=== PATIENT | female | born 1945 | race Two or more races ===

== ENCOUNTER 2022-11-08 08:20 | Inpatient (IN) | payer OTHER, MEDICAID ==
[~2022-11-08] VITALS: Ht 157.5 cm; Wt 75.9 kg
[~2022-11-08 08:20] MED LIST: AMLO1TAB23 PO; ASPI81CH59 PO; CARV6.2551 PO; DOCU-94 PO; GABA-1308 PO; HYDR-4072 PO; LOSA100T58 PO; MELO-335 PO; PRAV20TA3 PO; SENN-58 PO; TRAZ-228 PO
[2022-11-08] MEDS ORDERED: ETOMIDATE (2MG/ML) 20ML VIAL IV ONE (12:25)
[2022-11-08] MEDS ORDERED: MIDAZOLAM HCL 2MG/2ML 2ml VIAL (1mg/ml) ONE (12:25)
[2022-11-08] MEDS ORDERED: ONDANSETRON HCL 4 MG/2 ML VIAL ONE (12:25)
[2022-11-08] MEDS ORDERED: HYDROmorphone HCL 2 MG/ML VL/or syr ONE (12:25)
[2022-11-08] MEDS ORDERED: DexAMETHasone SOD PHOS 10MG/1ML VIAL INJ ONE (12:25)
[2022-11-08] MEDS ORDERED: ROCURONIUM 10MG/ML 10ML VIAL IV ONE (12:25)
[2022-11-08] MEDS ORDERED: PROPOFOL 10 MG/ML 20 ML IV ONE (12:25)
[2022-11-08] MEDS ORDERED: fentaNYL CITRATE 5 ML ONE (12:45)
[2022-11-08] MEDS ORDERED: MORPHINE SULFATE INJ 2 MG/ml SYRG IV PRN ×2 (13:30→17:00)
[2022-11-08] MEDS ORDERED: HYDROmorphone HCL 2 MG/ML VL/or syr IV PRN ×3 (13:30→18:15)
[2022-11-08] MEDS ORDERED: METOCLOPRAMIDE HCL 5MG/ml INJ 2ml VIAL IV PRN (13:30)
[2022-11-08] MEDS ORDERED: VANCOMYCIN HCL 1000 MG VL ONE (13:55)
[2022-11-08] MEDS ORDERED: NITROGLYCERIN 0.4 MG SL TAB SL PRN (17:00)
[2022-11-08] MEDS ORDERED: ONDANSETRON HCL 4 MG/2 ML VIAL IV PRN ×2 (17:00→18:15)
[2022-11-08] MEDS ORDERED: ACETAMINOPHEN 325 MG TAB PO PRN (17:00)
[2022-11-08] MEDS ORDERED: VANCOMYCIN PER PHARMACY 0 MG IV SCH (17:00)
[2022-11-08 17:56] VITALS: PULSE 79; RESP 14; O2SAT 96
[2022-11-08] MEDS ORDERED: VANCOMYCIN 1GM/250ML 250 ML IV ONE (18:00)
[2022-11-08 18:30] VITALS: PULSE 84; RESP 14; O2SAT 96
[2022-11-08] MEDS ORDERED: SUCCINYLCHOLINE 20mg/ml 100mg/5ml SYRINGE IV ONE (18:59)
[2022-11-08 19:34] VITALS: PULSE 88; RESP 19
[2022-11-08 20:00] VITALS: PULSE 73; PULSE 75; RESP 19
[2022-11-08] MEDS: HYDROcodone-ACET 10/325MG TAB PO PRN (20:37)
[2022-11-08 20:41] VITALS: BP 113/61; PULSE 80; RESP 16; TEMP 98.2; O2SAT 94
[2022-11-08] MEDS: DOCUSATE SOD 100 MG CAP PO SCH (21:21)
[2022-11-08] MEDS: CYCLOBENZAPRINE HCL 10 MG TAB PO SCH (21:21)
[2022-11-08] MEDS: D5W/SOD CHLO 0.9% 1,000 ML IV SCH (21:21)
[2022-11-08 22:00] VITALS: BP 113/61; PULSE 80; RESP 16; TEMP 98.6; O2SAT 94
[2022-11-09] VITALS (7 sets, daily range): BP systolic 124–137; BP diastolic 52–68; PULSE 81–87; RESP 14–20; TEMP 98.4–101.6; O2SAT 93–97
[2022-11-09] MEDS: MORPHINE SULFATE INJ 2 MG/ml SYRG IV PRN ×2 (02:20→11:32)
[2022-11-09] MEDS: D5W/SOD CHLO 0.9% 1,000 ML IV SCH ×3 (03:00→17:15)
[2022-11-09] MEDS: CYCLOBENZAPRINE HCL 10 MG TAB PO SCH ×3 (05:41→21:15)
[2022-11-09 11:07] LABS: Basophils # (auto) 0 10 ^3/uL (0-0.2); Basophils % (auto) 0.3 % (0.0-2.0); Eosinophils # (auto) 0 10 ^3/uL (0-0.8); Eosinophils % (auto) 0.2 % (0.0-7.0); Hematocrit 36.6 % (36.0-46.0); Hemoglobin 11.5 g/dL (12.2-16.2); Lymphocytes # (auto) 1.1 10 ^3/uL (0.4-5.4); Lymphocytes % (auto) 9.8 % (10.0-50.0); Mean Corpuscular Hemoglobin 27.6 pg (28.0-32.0); Mean Corpuscular Hgb Conc. 31.4 g/dL (32.0-36.0); Mean Corpuscular Volume 87.8 fL (80.0-100.0); Monocytes # (auto) 1.1 10 ^3/uL (0-1.3); Neutrophils # (auto) 8.8 10 ^3/uL (1.6-8.6); Neutrophils % (auto) 79.7 % (37.0-80.0); Red Blood Cells 4.17 10^6/uL (4.0-5.20); Red Cell Distribution Width 16.8 % (11.8-14.3)
[2022-11-09] MEDS: VANCOMYCIN 1GM/250ML 250 ML IV SCH (11:31)
[2022-11-09] MEDS: DOCUSATE SOD 100 MG CAP PO SCH (11:31)
[2022-11-09 11:34] LABS: BUN/Creatinine Ratio 7.8 (10.0-20.0); Calcium 8.4 mg/dL (8.5-10.1)
[2022-11-09 11:48] LABS: Potassium 2.8 mmol/L (3.5-5.1)
[2022-11-09] MEDS ORDERED: POTASSIUM CHL 20 Meq TABLET PO ONE (13:30)
[2022-11-09] MEDS ORDERED: POTASSIUM CHLORIDE 20 MEQ, LIDOCAINE 1% (LOCAL ANESTH.) 2 ML in SODIUM CHL 0.9% 100 ML IV ONE (13:30)
[2022-11-09] MEDS: HYDROcodone-ACET 10/325MG TAB PO PRN (16:44)
[2022-11-09] MEDS: MAGNESIUM SULFATE 1GM/100ML 100 ML IV SCH ×2 (17:37→18:52)
[2022-11-09] MEDS ORDERED: MAGNESIUM SULFATE 1GM/100ML 100 ML IV SCH (19:00)
[2022-11-09] MEDS: PRAVASTATIN SODIUM 20 MG TAB PO SCH (21:14)
[2022-11-09] MEDS: traZODone HCL 50 MG TAB PO SCH (21:15)
[2022-11-09] MEDS: GABAPENTIN 100 MG CAP PO SCH (21:15)
[2022-11-09] MEDS: CARVEDILOL 3.125 MG TAB PO SCH (21:24)
[2022-11-10] VITALS (7 sets, daily range): BP systolic 115–162; BP diastolic 59–72; PULSE 82–89; RESP 16–18; TEMP 98–98.7; O2SAT 92–100
[2022-11-10] MEDS: GABAPENTIN 100 MG CAP PO SCH ×3 (06:04→21:49)
[2022-11-10 07:13] LABS: Calcium 8.7 mg/dL (8.5-10.1); Magnesium 2.2 mg/dL (1.6-2.6); Potassium 3.7 mmol/L (3.5-5.1)
[2022-11-10 07:16] LABS: BUN/Creatinine Ratio 7.5 (10.0-20.0)
[2022-11-10] MEDS: D5W/SOD CHLO 0.9% 1,000 ML IV SCH ×2 (07:33→19:55)
[2022-11-10] MEDS: VANCOMYCIN 1GM/250ML 250 ML IV SCH (09:38)
[2022-11-10] MEDS: DOCUSATE SOD 100 MG CAP PO SCH (09:39)
[2022-11-10] MEDS: CARVEDILOL 3.125 MG TAB PO SCH ×2 (09:40→21:48)
[2022-11-10 09:42] LABS: Basophils # (auto) 0.1 10 ^3/uL (0-0.2); Basophils % (auto) 0.8 % (0.0-2.0); Eosinophils # (auto) 0 10 ^3/uL (0-0.8); Eosinophils % (auto) 0.4 % (0.0-7.0); Hematocrit 31.9 % (36.0-46.0); Hemoglobin 10.6 g/dL (12.2-16.2); Lymphocytes % (auto) 9.4 % (10.0-50.0); Mean Corpuscular Hemoglobin 28.1 pg (28.0-32.0); Mean Corpuscular Hgb Conc. 33.2 g/dL (32.0-36.0); Mean Corpuscular Volume 84.5 fL (80.0-100.0); Monocytes # (auto) 1.2 10 ^3/uL (0-1.3); Monocytes % (auto) 11.1 % (0.0-12.0); Neutrophils # (auto) 8.3 10 ^3/uL (1.6-8.6); Neutrophils % (auto) 78.3 % (37.0-80.0); Nucleated Red Blood Cells % 0.1 %; Red Blood Cells 3.78 10^6/uL (4.0-5.20); Red Cell Distribution Width 15.9 % (11.8-14.3); White Blood Cell 10.6 10^3/uL (4.4-10.8)
[2022-11-10] MEDS: CYCLOBENZAPRINE HCL 10 MG TAB PO SCH ×2 (09:44→21:49)
[2022-11-10] MEDS: MORPHINE SULFATE INJ 2 MG/ml SYRG IV PRN ×2 (10:35→17:27)
[2022-11-10] MEDS: traZODone HCL 50 MG TAB PO SCH (21:48)
[2022-11-10] MEDS: PRAVASTATIN SODIUM 20 MG TAB PO SCH (21:50)
[2022-11-11] VITALS (7 sets, daily range): BP systolic 112–133; BP diastolic 51–66; PULSE 73–82; RESP 14–20; TEMP 97.9–99.4; O2SAT 94–100
[2022-11-11] MEDS: HYDROcodone-ACET 10/325MG TAB PO PRN ×2 (01:34→20:38)
[2022-11-11] MEDS: GABAPENTIN 100 MG CAP PO SCH ×3 (05:15→22:08)
[2022-11-11] MEDS: DOCUSATE SOD 100 MG CAP PO SCH (09:29)
[2022-11-11] MEDS: CARVEDILOL 3.125 MG TAB PO SCH ×2 (09:32→22:06)
[2022-11-11] MEDS: CYCLOBENZAPRINE HCL 10 MG TAB PO SCH ×2 (09:33→22:08)
[2022-11-11] MEDS: MORPHINE SULFATE INJ 2 MG/ml SYRG IV PRN (09:47)
[2022-11-11] MEDS: VANCOMYCIN 1GM/250ML 250 ML IV SCH (10:24)
[2022-11-11] MEDS: D5W/SOD CHLO 0.9% 1,000 ML IV SCH (13:54)
[2022-11-11] MEDS ORDERED: VANCOMYCIN 1GM/250ML 250 ML IV SCH (22:00)
[2022-11-11] MEDS: traZODone HCL 50 MG TAB PO SCH (22:07)
[2022-11-11] MEDS: PRAVASTATIN SODIUM 20 MG TAB PO SCH (22:14)
[2022-11-12] VITALS (7 sets, daily range): BP systolic 114–144; BP diastolic 59–82; PULSE 77–93; RESP 18–24; TEMP 98.1–99.6; O2SAT 92–100
[2022-11-12] MEDS: GABAPENTIN 100 MG CAP PO SCH ×3 (05:08→23:41)
[2022-11-12] MEDS: HYDROcodone-ACET 10/325MG TAB PO PRN ×3 (05:12→23:44)
[2022-11-12 06:20] LABS: Basophils # (auto) 0 10 ^3/uL (0-0.2); Basophils % (auto) 0.3 % (0.0-2.0); Eosinophils # (auto) 0.1 10 ^3/uL (0-0.8); Eosinophils % (auto) 1.2 % (0.0-7.0); Hematocrit 29.1 % (36.0-46.0); Hemoglobin 9.8 g/dL (12.2-16.2); Lymphocytes # (auto) 0.9 10 ^3/uL (0.4-5.4); Lymphocytes % (auto) 9.8 % (10.0-50.0); Mean Corpuscular Hemoglobin 28.1 pg (28.0-32.0); Mean Corpuscular Hgb Conc. 33.6 g/dL (32.0-36.0); Mean Corpuscular Volume 83.6 fL (80.0-100.0); Neutrophils % (auto) 77.7 % (37.0-80.0); Red Blood Cells 3.48 10^6/uL (4.0-5.20); Red Cell Distribution Width 15.6 % (11.8-14.3)
[2022-11-12 06:37] LABS: Calcium 9.1 mg/dL (8.5-10.1)
[2022-11-12] MEDS ORDERED: POTASSIUM CHL 20 Meq TABLET PO ONE (09:15)
[2022-11-12] MEDS ORDERED: POTASSIUM CHLORIDE 20 MEQ, LIDOCAINE 1% (LOCAL ANESTH.) 2 ML in SODIUM CHL 0.9% 100 ML IV ONE (09:15)
[2022-11-12] MEDS: CYCLOBENZAPRINE HCL 10 MG TAB PO SCH ×2 (09:24→23:45)
[2022-11-12] MEDS: DOCUSATE SOD 100 MG CAP PO SCH (09:24)
[2022-11-12] MEDS: CARVEDILOL 3.125 MG TAB PO SCH ×2 (09:24→23:43)
[2022-11-12] MEDS: MORPHINE SULFATE INJ 2 MG/ml SYRG IV PRN (19:23)
[2022-11-12] MEDS: PRAVASTATIN SODIUM 20 MG TAB PO SCH (23:42)
[2022-11-12] MEDS: traZODone HCL 50 MG TAB PO SCH (23:48)
[2022-11-13] VITALS (7 sets, daily range): BP systolic 111–148; BP diastolic 52–81; PULSE 71–91; RESP 16–17; TEMP 98.3–99.2; O2SAT 93–100
[2022-11-13] MEDS: MORPHINE SULFATE INJ 2 MG/ml SYRG IV PRN ×4 (04:50→18:50)
[2022-11-13 07:00] LABS: Basophils # (auto) 0 10 ^3/uL (0-0.2); Basophils % (auto) 0.7 % (0.0-2.0); Eosinophils # (auto) 0.1 10 ^3/uL (0-0.8); Eosinophils % (auto) 2.6 % (0.0-7.0); Hematocrit 28.5 % (36.0-46.0); Hemoglobin 9.5 g/dL (12.2-16.2); Lymphocytes # (auto) 0.9 10 ^3/uL (0.4-5.4); Lymphocytes % (auto) 17.1 % (10.0-50.0); Mean Corpuscular Hemoglobin 28.1 pg (28.0-32.0); Mean Corpuscular Hgb Conc. 33.2 g/dL (32.0-36.0); Mean Corpuscular Volume 84.8 fL (80.0-100.0); Monocytes # (auto) 0.8 10 ^3/uL (0-1.3); Monocytes % (auto) 14.5 % (0.0-12.0); Neutrophils # (auto) 3.6 10 ^3/uL (1.6-8.6); Neutrophils % (auto) 65.1 % (37.0-80.0); Red Blood Cells 3.36 10^6/uL (4.0-5.20); Red Cell Distribution Width 15.2 % (11.8-14.3); White Blood Cell 5.6 10^3/uL (4.4-10.8)
[2022-11-13] MEDS: GABAPENTIN 100 MG CAP PO SCH ×3 (07:30→22:22)
[2022-11-13 07:46] LABS: Potassium 3.4 mmol/L (3.5-5.1)
[2022-11-13 07:51] LABS: Albumin 2.4 g/dL (3.4-5.0); Bilirubin, Total 0.5 mg/dL (0.2-1.0); Calcium 9.3 mg/dL (8.5-10.1); Total Protein 6.2 g/dL (6.4-8.2)
[2022-11-13] MEDS: CYCLOBENZAPRINE HCL 10 MG TAB PO SCH ×2 (09:45→22:26)
[2022-11-13] MEDS: DOCUSATE SOD 100 MG CAP PO SCH (09:45)
[2022-11-13] MEDS: CARVEDILOL 3.125 MG TAB PO SCH ×2 (09:46→22:22)
[2022-11-13] MEDS ORDERED: POTASSIUM EFFERVESENT TAB 25 MEQ PO ONE (17:45)
[2022-11-13] MEDS: HYDROcodone-ACET 10/325MG TAB PO PRN (22:20)
[2022-11-13] MEDS: PRAVASTATIN SODIUM 20 MG TAB PO SCH (22:22)
[2022-11-13] MEDS: traZODone HCL 50 MG TAB PO SCH (22:23)
[2022-11-14 05:00] VITALS: BP 112/62; PULSE 76; RESP 16; TEMP 98.1; O2SAT 97
[2022-11-14] MEDS: HYDROcodone-ACET 10/325MG TAB PO PRN ×2 (06:28→10:36)
[2022-11-14] MEDS: GABAPENTIN 100 MG CAP PO SCH ×2 (06:28→13:13)
[2022-11-14 08:00] VITALS: BP 114/69; PULSE 70; PULSE 75; PULSE 76; RESP 15; TEMP 97.9; O2SAT 100
[2022-11-14 08:30] VITALS: BP 117/69; PULSE 76; RESP 15; TEMP 98; O2SAT 100
[2022-11-14] MEDS: CYCLOBENZAPRINE HCL 10 MG TAB PO SCH (10:36)
[2022-11-14] MEDS: CARVEDILOL 3.125 MG TAB PO SCH (10:36)
[2022-11-14] MEDS: DOCUSATE SOD 100 MG CAP PO SCH (10:36)
[2022-11-14] MEDS ORDERED: SENN-58 PO (11:35)
[2022-11-14] MEDS ORDERED: HYDR-4072 PO (11:35)
[2022-11-14 12:38] VITALS: BP 115/72; PULSE 77; RESP 17; TEMP 98; O2SAT 97
[2022-11-14 13:24] VITALS: BP 126/70; PULSE 62; RESP 15; TEMP 97.9; O2SAT 96
[2022-11-14 17:34] VITALS: BP 103/75; PULSE 87; RESP 16; TEMP 98; O2SAT 95
== END 2022-11-14 19:00 | disposition home health service (06) | DRG 516 ==
LOC: SUR 08:20 → TELE 16:51 → TELE-CENTR 19:20
PROVIDERS: ADMIT Orthopaedic Surgery; ATTEND Orthopaedic Surgery
PROC: 01NB0ZZ Release Lumbar Nerve, Open Approach (ICD-10-PCS; principal; 2022-11-11)
PROC: 0QB00ZZ Excision of Lumbar Vertebra, Open Approach (ICD-10-PCS; 2022-11-11)
DX: M48.061 Spinal stenosis, lumbar region without neurogenic claudication (principal); R71.0 Precipitous drop in hematocrit; M96.1 Postlaminectomy syndrome, not elsewhere classified; E88.09 Other disorders of plasma-protein metabolism, not elsewhere classified; M51.16 Intervertebral disc disorders with radiculopathy, lumbar region; E66.9 Obesity, unspecified; E87.6 Hypokalemia; I11.9 Hypertensive heart disease without heart failure; M41.50 Other secondary scoliosis, site unspecified; M19.09 Primary osteoarthritis, other specified site; Z79.899 Other long term (current) drug therapy; Z68.29 Body mass index [BMI] 29.0-29.9, adult; M19.90 Unspecified osteoarthritis, unspecified site
CPT/HCPCS: 36415; 80048; 80053; 80202; 83735; 85025; 86850; 86900; 86901; 97110; 97116; 97163; 97530; G0378; J1100; J2001; J2250; J2405; J2704; J7042